=== PATIENT | female | born 1935 | race Hispanic/Latino ===

== ENCOUNTER 2020-12-21 17:00 | Inpatient (IN) | payer MEDICARE ==
[2020-12-21] MEDS ORDERED: Acetaminophen 325 MG TAB PO PRN ×2 (20:30→21:10)
[2020-12-21] MEDS ORDERED: Ondansetron PF 4 MG/2 ML Vial IVP PRN ×2 (20:30→21:10)
[2020-12-21] MEDS ORDERED: Ondansetron ODT 4 MG TAB SL PRN (20:30)
[2020-12-21] MEDS ORDERED: Ondansetron ODT 4 MG TAB PO PRN (21:10)
[2020-12-21] MEDS ORDERED: Guaifenesin DM 100-10/5 ML UDCUP PO PRN (21:10)
[2020-12-21] MEDS ORDERED: Calcium Carbonate 500 MG ChewTAB PO PRN (21:10)
[2020-12-21 23:39] VITALS: BMI 26.6
[2020-12-21 23:50] LABS: Prothrombin Time 13.8 sec (12.0-14.7)
[2020-12-21 23:51] LABS: PTT 55.2 sec (22.9-36.1)
[2020-12-21 23:52] LABS: Troponin I 0.045 ng/mL (< 0.028)
[2020-12-22] MEDS ORDERED: Enoxaparin Sodium 60 MG/0.6 ML SYRINGE SC SCH (06:00)
[2020-12-22] MEDS: Enoxaparin Sodium 60 MG/0.6 ML SYRINGE SC SCH (06:04)
[2020-12-22 06:23] LABS: #Lymphocytes 0.6 thou/uL (1.20-3.40); #Monocytes 0.2 thou/uL (0.11-0.59); #Neutrophils 4.1 thou/uL (1.40-6.50); %Basophils 0.6 % (0.0-1.0); %Eosinophils 0.1 % (0.0-10.0); %Lymphocytes 11.8 % (21.0-51.0); %Monocytes 3.2 % (0.0-10.0); %Neutrophils 84.2 % (42.0-75.0); Hemoglobin 11.7 g/dL (12.0-16.0); Mean Corpuscular Volume 94.1 fL (78.0-98.0); Mean Platelet Volume 9.1 fL (7.4-10.4); Platelet Count 160 thou/uL (130-400); RBC Distribution Width 12.2 % (11.5-14.5); Red Blood Cell (RBC) Count 3.67 mill/uL (4.20-5.40); White Blood Cell (WBC) Count 4.9 thou/uL (4.8-10.8)
[2020-12-22 06:47] LABS: Anion Gap 19 mmol/L (10-20); BUN (Urea Nitrogen) 38 mg/dL (9.8-20.1); Calc. Creatinine Clearance 37 mL/min (70-130); Calcium 8.5 mg/dL (7.8-10.44); Carbon Dioxide 15 mmol/L (23-31); Chloride 105 mmol/L (98-107); Glucose 152 mg/dL (83-110); Potassium 3.4 mmol/L (3.5-5.1); Sodium 136 mmol/L (136-145)
[2020-12-22 06:48] LABS: CRP (Inflammatory) 7.26 mg/dL (= or < 0.5); Magnesium 1.7 mg/dL (1.6-2.6)
[2020-12-22 07:01] LABS: Ferritin 879.72 ng/mL (10-291)
[2020-12-22 07:10] LABS: Thyroid Stimulating Hormone 1.097 uIU/mL (0.35-4.94)
[2020-12-22] MEDS: Cholecalciferol 1,000 UNITS (25 MCG) TAB PO SCH (07:50)
[2020-12-22] MEDS: Dexamethasone 4 mg/ml Vial SLOW IVP SCH (07:50)
[2020-12-22] MEDS: Zinc Sulfate 220 MG CAP PO SCH (07:50)
[2020-12-22] MEDS ORDERED: Ascorbic Acid 500 mg Chewable Tablet PO SCH (09:00)
[2020-12-22] MEDS: Amlodipine 5 MG TAB PO SCH (20:30)
[2020-12-22] MEDS: Ascorbic Acid 500 mg Chewable Tablet PO SCH (20:30)
[2020-12-22] MEDS: Metoprolol Tartrate 25 MG TAB PO SCH (20:32)
[2020-12-23] MEDS: Enoxaparin Sodium 60 MG/0.6 ML SYRINGE SC SCH (05:10)
[2020-12-23] MEDS: Levothyroxine Sodium 25 MCG TAB PO SCH (05:11)
[2020-12-23 06:38] LABS: Troponin I 0.023 ng/mL (< 0.028)
[2020-12-23] MEDS: Losartan 25 MG TAB PO SCH (08:01)
[2020-12-23] MEDS: Dexamethasone 4 mg/ml Vial SLOW IVP SCH (08:01)
[2020-12-23] MEDS: Cholecalciferol 1,000 UNITS (25 MCG) TAB PO SCH (08:01)
[2020-12-23] MEDS: Ascorbic Acid 500 mg Chewable Tablet PO SCH ×2 (08:02→20:52)
[2020-12-23] MEDS: Amlodipine 5 MG TAB PO SCH ×2 (08:02→20:52)
[2020-12-23] MEDS: Metoprolol Tartrate 25 MG TAB PO SCH ×2 (08:02→20:52)
[2020-12-23] MEDS: Escitalopram Oxalate 10 mg Tablet PO SCH (08:03)
[2020-12-23] MEDS: Zinc Sulfate 220 MG CAP PO SCH (08:03)
[2020-12-23] MEDS: Loratadine 10 MG TAB PO SCH (08:03)
[2020-12-24] MEDS: Levothyroxine Sodium 25 MCG TAB PO SCH (05:10)
[2020-12-24] MEDS: Enoxaparin Sodium 60 MG/0.6 ML SYRINGE SC SCH (05:10)
[2020-12-24 06:10] LABS: Bacteria/HPF None Seen HPF (None Seen); Bilirubin Negative (Negative); Blood, Urine Negative (Negative); Clarity Clear (Clear); Glucose, Urine (Dipstick) Normal (Negative); Ketone, Urine 10 mg/dL (Negative); Leukocyte Negative Leu/uL (Negative); Nitrite Negative (Negative); Protein, Urine (Dipstick) 10 mg/dL (Neg-Trace); RBC/HPF 0-3 HPF (0-3); Specific Gravity, Urine 1.018 (1.002-1.036); Squamous Epithelial 0-3 HPF (0-3); Urobilinogen Normal mg/dL (Less than 2); WBC/HPF 0-3 HPF (0-3); pH, Urine 5.5 (5.0-9.0)
[2020-12-24 06:33] LABS: #Lymphocytes 0.9 thou/uL (1.20-3.40); #Monocytes 0.8 thou/uL (0.11-0.59); #Neutrophils 10.1 thou/uL (1.40-6.50); %Basophils 0.1 % (0.0-1.0); %Eosinophils 0.1 % (0.0-10.0); %Lymphocytes 7.2 % (21.0-51.0); %Monocytes 7.1 % (0.0-10.0); %Neutrophils 85.5 % (42.0-75.0); Hemoglobin 11.3 g/dL (12.0-16.0); Mean Corpuscular Hemoglobin 31.8 pg (27.0-31.0); Mean Corpuscular Volume 93.5 fL (78.0-98.0); Platelet Count 213 thou/uL (130-400); RBC Distribution Width 12.3 % (11.5-14.5); Red Blood Cell (RBC) Count 3.54 mill/uL (4.20-5.40); White Blood Cell (WBC) Count 11.8 thou/uL (4.8-10.8)
[2020-12-24 06:55] LABS: Anion Gap 18 mmol/L (10-20); BUN (Urea Nitrogen) 37 mg/dL (9.8-20.1); Calc. Creatinine Clearance 51 mL/min (70-130); Calcium 8.5 mg/dL (7.8-10.44); Carbon Dioxide 20 mmol/L (23-31); Chloride 105 mmol/L (98-107); Glucose 146 mg/dL (83-110); Sodium 140 mmol/L (136-145)
[2020-12-24 06:57] LABS: Potassium 2.7 mmol/L (3.5-5.1)
[2020-12-24] MEDS: Dexamethasone 4 mg/ml Vial SLOW IVP SCH (08:28)
[2020-12-24] MEDS: Escitalopram Oxalate 10 mg Tablet PO SCH (08:28)
[2020-12-24] MEDS: Metoprolol Tartrate 25 MG TAB PO SCH ×2 (08:28→21:59)
[2020-12-24] MEDS: Zinc Sulfate 220 MG CAP PO SCH (08:28)
[2020-12-24] MEDS: Cholecalciferol 1,000 UNITS (25 MCG) TAB PO SCH (08:28)
[2020-12-24] MEDS: Losartan 25 MG TAB PO SCH (08:29)
[2020-12-24] MEDS: Amlodipine 5 MG TAB PO SCH ×2 (08:29→21:59)
[2020-12-24] MEDS: Ascorbic Acid 500 mg Chewable Tablet PO SCH ×2 (08:29→21:59)
[2020-12-24] MEDS: Loratadine 10 MG TAB PO SCH (08:29)
[2020-12-24] MEDS ORDERED: Potassium Chloride 20 MEQ TAB PO SCH (08:45)
[2020-12-24] MEDS: Potassium Chloride 20 MEQ TAB PO SCH (21:59)
[2020-12-25] MEDS: Enoxaparin Sodium 60 MG/0.6 ML SYRINGE SC SCH (05:36)
[2020-12-25] MEDS: Levothyroxine Sodium 25 MCG TAB PO SCH (05:36)
[2020-12-25 06:56] LABS: Anion Gap 17 mmol/L (10-20); BUN (Urea Nitrogen) 36 mg/dL (9.8-20.1); Calc. Creatinine Clearance 52 mL/min (70-130); Calcium 8.7 mg/dL (7.8-10.44); Carbon Dioxide 20 mmol/L (23-31); Chloride 106 mmol/L (98-107); Glucose 153 mg/dL (83-110); Magnesium 1.6 mg/dL (1.6-2.6); Potassium 3.5 mmol/L (3.5-5.1); Sodium 139 mmol/L (136-145)
[2020-12-25] MEDS: Ascorbic Acid 500 mg Chewable Tablet PO SCH ×2 (08:16→21:03)
[2020-12-25] MEDS: Cholecalciferol 1,000 UNITS (25 MCG) TAB PO SCH (08:16)
[2020-12-25] MEDS: Loratadine 10 MG TAB PO SCH (08:16)
[2020-12-25] MEDS: Potassium Chloride 20 MEQ TAB PO SCH (08:16)
[2020-12-25] MEDS: Escitalopram Oxalate 10 mg Tablet PO SCH (08:16)
[2020-12-25] MEDS: Zinc Sulfate 220 MG CAP PO SCH (08:17)
[2020-12-25] MEDS: Amlodipine 5 MG TAB PO SCH ×2 (08:17→21:02)
[2020-12-25] MEDS: Dexamethasone 4 mg/ml Vial SLOW IVP SCH (08:17)
[2020-12-25] MEDS: Losartan 25 MG TAB PO SCH (08:17)
[2020-12-25] MEDS: Metoprolol Tartrate 25 MG TAB PO SCH ×2 (08:17→21:03)
[2020-12-26] MEDS: Enoxaparin Sodium 60 MG/0.6 ML SYRINGE SC SCH (05:47)
[2020-12-26] MEDS: Levothyroxine Sodium 25 MCG TAB PO SCH (05:47)
[2020-12-26] MEDS: Cholecalciferol 1,000 UNITS (25 MCG) TAB PO SCH (10:27)
[2020-12-26] MEDS: Potassium Chloride 20 MEQ TAB PO SCH (10:28)
[2020-12-26] MEDS: Dexamethasone 4 MG TAB PO SCH (10:28)
[2020-12-26] MEDS: Zinc Sulfate 220 MG CAP PO SCH (10:28)
[2020-12-26] MEDS: Losartan 25 MG TAB PO SCH (10:28)
[2020-12-26] MEDS: Loratadine 10 MG TAB PO SCH (10:29)
[2020-12-26] MEDS: Escitalopram Oxalate 10 mg Tablet PO SCH (10:29)
[2020-12-26] MEDS: Metoprolol Tartrate 25 MG TAB PO SCH ×2 (10:29→20:52)
[2020-12-26] MEDS: Amlodipine 5 MG TAB PO SCH ×2 (10:29→20:52)
[2020-12-26] MEDS: Enoxaparin Sodium 40 MG/0.4 ML SYRINGE SC SCH (10:33)
[2020-12-26] MEDS: Ascorbic Acid 500 mg Chewable Tablet PO SCH ×2 (10:33→20:51)
[2020-12-27] MEDS: Levothyroxine Sodium 25 MCG TAB PO SCH (05:13)
[2020-12-27 06:10] LABS: CRP (Inflammatory) 0.95 mg/dL (= or < 0.5); Magnesium 1.5 mg/dL (1.6-2.6)
[2020-12-27 06:12] LABS: ALT (SGPT) 21 U/L (8-55); AST (SGOT) 22 U/L (5-34); Albumin 2.9 g/dL (3.4-4.8); Alkaline Phosphatase 54 U/L (40-110); Anion Gap 10 mmol/L (10-20); BUN (Urea Nitrogen) 22 mg/dL (9.8-20.1); Bilirubin, Total 0.4 mg/dL (0.2-1.2); Calc. Creatinine Clearance 63 mL/min (70-130); Calcium 8.3 mg/dL (7.8-10.44); Carbon Dioxide 25 mmol/L (23-31); Chloride 107 mmol/L (98-107); Globulin 2.8 g/dL (2.4-3.5); Glucose 122 mg/dL (83-110); Phosphorus 2.3 mg/dL (2.3-4.7); Potassium 3.8 mmol/L (3.5-5.1); Protein, Total 5.7 g/dL (5.8-8.1); Sodium 138 mmol/L (136-145)
[2020-12-27 06:42] LABS: #Lymphocytes 1.2 thou/uL (1.20-3.40); #Monocytes 0.9 thou/uL (0.11-0.59); #Neutrophils 5.9 thou/uL (1.40-6.50); %Basophils 0.6 % (0.0-1.0); %Eosinophils 0.2 % (0.0-10.0); %Lymphocytes 14.6 % (21.0-51.0); %Monocytes 10.8 % (0.0-10.0); %Neutrophils 73.8 % (42.0-75.0); Hemoglobin 11.3 g/dL (12.0-16.0); Mean Corpuscular HGB CONC 33.8 g/dL (32.0-36.0); Mean Corpuscular Hemoglobin 31.8 pg (27.0-31.0); Mean Corpuscular Volume 94.1 fL (78.0-98.0); Mean Platelet Volume 8.9 fL (7.4-10.4); Platelet Count 301 thou/uL (130-400); RBC Distribution Width 12.1 % (11.5-14.5); Red Blood Cell (RBC) Count 3.56 mill/uL (4.20-5.40)
[2020-12-27] MEDS: Potassium Chloride 20 MEQ TAB PO SCH (08:32)
[2020-12-27] MEDS: Dexamethasone 4 MG TAB PO SCH (08:33)
[2020-12-27] MEDS: Ascorbic Acid 500 mg Chewable Tablet PO SCH ×2 (08:33→20:31)
[2020-12-27] MEDS: Loratadine 10 MG TAB PO SCH (08:33)
[2020-12-27] MEDS: Cholecalciferol 1,000 UNITS (25 MCG) TAB PO SCH (08:34)
[2020-12-27] MEDS: Losartan 25 MG TAB PO SCH (08:34)
[2020-12-27] MEDS: Escitalopram Oxalate 10 mg Tablet PO SCH (08:34)
[2020-12-27] MEDS: Amlodipine 5 MG TAB PO SCH ×2 (08:35→20:32)
[2020-12-27] MEDS: Metoprolol Tartrate 25 MG TAB PO SCH ×2 (08:35→20:32)
[2020-12-27] MEDS: Enoxaparin Sodium 40 MG/0.4 ML SYRINGE SC SCH (08:35)
[2020-12-27] MEDS: Zinc Sulfate 220 MG CAP PO SCH (08:36)
[2020-12-27] MEDS ORDERED: Electrolyte Replacement Protocol 1 EACH FS SCH (09:00)
[2020-12-27] MEDS ORDERED: Magnesium Sulfate 4 GM in Sodium Chloride 0.9% 250 ML 250 ML IVPB SCH (09:00)
[2020-12-27] MEDS: Folic Acid 1 MG TAB PO SCH (09:49)
[2020-12-27] MEDS: Multivit, Therapeutic 1 TAB PO SCH (09:49)
[2020-12-27] MEDS: Cyanocobalamin (Vitamin B-12) 1,000 MCG TAB PO SCH (09:49)
[2020-12-28] MEDS: Levothyroxine Sodium 25 MCG TAB PO SCH (06:02)
[2020-12-28 07:13] LABS: ALT (SGPT) 26 U/L (8-55); AST (SGOT) 20 U/L (5-34); Albumin 2.9 g/dL (3.4-4.8); Alkaline Phosphatase 56 U/L (40-110); Anion Gap 14 mmol/L (10-20); BUN (Urea Nitrogen) 21 mg/dL (9.8-20.1); Bilirubin, Total 0.4 mg/dL (0.2-1.2); Calc. Creatinine Clearance 62 mL/min (70-130); Calcium 8.4 mg/dL (7.8-10.44); Carbon Dioxide 21 mmol/L (23-31); Chloride 105 mmol/L (98-107); Glucose 124 mg/dL (83-110); Magnesium 2.1 mg/dL (1.6-2.6); Phosphorus 2.5 mg/dL (2.3-4.7); Potassium 3.7 mmol/L (3.5-5.1); Protein, Total 5.9 g/dL (5.8-8.1); Sodium 136 mmol/L (136-145)
[2020-12-28 07:29] LABS: Hemoglobin 11.9 g/dL (12.0-16.0); Mean Corpuscular HGB CONC 33.1 g/dL (32.0-36.0); Mean Corpuscular Hemoglobin 31.1 pg (27.0-31.0); Mean Corpuscular Volume 93.9 fL (78.0-98.0); Mean Platelet Volume 8.7 fL (7.4-10.4); Platelet Count 372 thou/uL (130-400); Red Blood Cell (RBC) Count 3.82 mill/uL (4.20-5.40); White Blood Cell (WBC) Count 10.4 thou/uL (4.8-10.8)
[2020-12-28] MEDS: Dexamethasone 4 MG TAB PO SCH (08:32)
[2020-12-28] MEDS: Ascorbic Acid 500 mg Chewable Tablet PO SCH (08:33)
[2020-12-28] MEDS: Zinc Sulfate 220 MG CAP PO SCH (08:33)
[2020-12-28] MEDS: Potassium Chloride 20 MEQ TAB PO SCH (08:33)
[2020-12-28] MEDS: Loratadine 10 MG TAB PO SCH (08:33)
[2020-12-28] MEDS: Cyanocobalamin (Vitamin B-12) 1,000 MCG TAB PO SCH (08:33)
[2020-12-28] MEDS: Metoprolol Tartrate 25 MG TAB PO SCH (08:33)
[2020-12-28] MEDS: Multivit, Therapeutic 1 TAB PO SCH (08:34)
[2020-12-28] MEDS: Folic Acid 1 MG TAB PO SCH (08:34)
[2020-12-28] MEDS: Amlodipine 5 MG TAB PO SCH (08:34)
[2020-12-28] MEDS: Losartan 25 MG TAB PO SCH (08:34)
[2020-12-28] MEDS: Escitalopram Oxalate 10 mg Tablet PO SCH (08:34)
[2020-12-28] MEDS: Enoxaparin Sodium 40 MG/0.4 ML SYRINGE SC SCH (08:34)
[2020-12-28 08:59] LABS: Band 2 % (5-11); Eosinophils 1 % (0-10); Lymphocytes 18 % (21-51); MDiff Complete? YES; Monocytes 6 % (0-10); Myelocyte 1 % (0-0); Neutrophil 71 % (42-75); Platelet Morphology Comment Appears Adequate; Polychromasia SLIGHT = 2-3 cells (100X) (0-2/hpf); Reactive Lymphocytes 1 % (0-10)
[2020-12-28] MEDS ORDERED: Cholecalciferol 1,000 UNITS (25 MCG) TAB PO SCH (09:00)
[2020-12-28 11:02] VITALS: BP 147/68; TEMP 97.4
== END 2020-12-28 13:26 | disposition home health service (06) | DRG 177 ==
LOC: T4-B 17:00
PROVIDERS: ADMIT Internal Medicine; ATTEND Internal Medicine
PROC: 8E0ZXY6 Isolation (ICD-10-PCS; principal; 2020-12-21)
DX: U07.1 COVID-19 (principal); J12.82 Pneumonia due to coronavirus disease 2019; J96.01 Acute respiratory failure with hypoxia; N17.9 Acute kidney failure, unspecified; E78.5 Hyperlipidemia, unspecified; F03.90 Unspecified dementia, unspecified severity, without behavioral disturbance, psychotic disturbance, mood disturbance, and anxiety; R10.30 Lower abdominal pain, unspecified; R00.0 Tachycardia, unspecified; N18.9 Chronic kidney disease, unspecified; E87.6 Hypokalemia; E03.9 Hypothyroidism, unspecified; I12.9 Hypertensive chronic kidney disease with stage 1 through stage 4 chronic kidney disease, or unspecified chronic kidney disease; D53.9 Nutritional anemia, unspecified
CPT/HCPCS: 36415; 80048; 80053; 81001; 82728; 83735; 84100; 84443; 84484; 85025; 85610; 85730; 86140; J1100; J1650; J3475; J7050; J8540

== ENCOUNTER 2021-01-03 18:56 | Inpatient (IN) | payer MEDICARE ==
[~2021-01-03 18:56] MED LIST: Iopamidol-370 76% 500 ML 1 ML ONE
[2021-01-03 19:45] LABS: #Eosinphils 0.1 thou/uL (0.0-0.7); #Lymphocytes 0.8 thou/uL (1.20-3.40); #Monocytes 0.6 thou/uL (0.11-0.59); #Neutrophils 11.9 thou/uL (1.40-6.50); %Basophils 0.1 % (0.0-1.0); %Eosinophils 0.6 % (0.0-10.0); %Lymphocytes 6.2 % (21.0-51.0); %Monocytes 4.4 % (0.0-10.0); %Neutrophils 88.8 % (42.0-75.0); Hemoglobin 12.5 g/dL (12.0-16.0); Mean Corpuscular HGB CONC 33.2 g/dL (32.0-36.0); Mean Corpuscular Hemoglobin 31.9 pg (27.0-31.0); Platelet Count 223 thou/uL (130-400); Red Blood Cell (RBC) Count 3.91 mill/uL (4.20-5.40); White Blood Cell (WBC) Count 13.4 thou/uL (4.8-10.8)
[2021-01-03 20:07] LABS: ALT (SGPT) 18 U/L (8-55); AST (SGOT) 13 U/L (5-34); Albumin 2.8 g/dL (3.4-4.8); Alkaline Phosphatase 62 U/L (40-110); Anion Gap 12 mmol/L (10-20); BUN (Urea Nitrogen) 23 mg/dL (9.8-20.1); Bilirubin, Total 0.5 mg/dL (0.2-1.2); Calc. Creatinine Clearance 0 mL/min (70-130); Carbon Dioxide 21 mmol/L (23-31); Chloride 104 mmol/L (98-107); Globulin 2.7 g/dL (2.4-3.5); Glucose 111 mg/dL (83-110); Lipase 47 U/L (8-78); Magnesium 1.5 mg/dL (1.6-2.6); Potassium 3.4 mmol/L (3.5-5.1); Protein, Total 5.5 g/dL (5.8-8.1); Sodium 134 mmol/L (136-145)
[2021-01-03] MEDS ORDERED: Potassium Chloride 20 MEQ TAB PO SCH (21:00)
[2021-01-03] MEDS ORDERED: Ondansetron PF 4 MG/2 ML Vial IVP PRN (21:08)
[2021-01-03] MEDS ORDERED: Ondansetron ODT 4 MG TAB PO PRN (21:08)
[2021-01-03] MEDS ORDERED: Acetaminophen 325 MG TAB PO PRN (21:08)
[2021-01-03] MEDS ORDERED: HYDROcodone/Acetaminophen 5/325 mg Tablet PO PRN (21:08)
[2021-01-03] MEDS ORDERED: Magnesium 2 GM/50 ML 2 GM in Premix Bag 1 BAG IVPB SCH (21:15)
[2021-01-03] MEDS ORDERED: Enoxaparin Sodium 80 MG/0.8 ML SYRINGE ONE (21:21)
[2021-01-03 21:31] LABS: Bacteria/HPF 4+ HPF (None Seen); Bilirubin Negative (Negative); Blood, Urine Negative (Negative); Clarity Clear (Clear); Glucose, Urine (Dipstick) Normal (Negative); Ketone, Urine Negative (Negative); Leukocyte Negative Leu/uL (Negative); Nitrite 1+ (Negative); Protein, Urine (Dipstick) Negative (Neg-Trace); RBC/HPF 0-3 HPF (0-3); Renal Epithelial 0-3 HPF (None Seen); Specific Gravity, Urine 1.032 (1.002-1.036); Squamous Epithelial 0-3 HPF (0-3); Urobilinogen Normal mg/dL (Less than 2); WBC/HPF 0-3 HPF (0-3); Yeast-Budding Rare HPF (None Seen); pH, Urine 6.5 (5.0-9.0)
[2021-01-03] MEDS ORDERED: Dexamethasone 4 mg/ml Vial SLOW IVP SCH (23:00)
[2021-01-03 23:35] LABS: Troponin I 0.025 ng/mL (< 0.028)
[2021-01-04 01:03] VITALS: BMI 24.5
[2021-01-04] MEDS ORDERED: Albuterol 200 PUFF (6.7GM INHALER) INH PRN (02:12)
[2021-01-04] MEDS: Albuterol 200 PUFF (6.7GM INHALER) INH SCH ×5 (02:35→18:48)
[2021-01-04 03:04] LABS: Troponin I 0.025 ng/mL (< 0.028)
[2021-01-04 06:18] LABS: #Lymphocytes 0.5 thou/uL (1.20-3.40); #Monocytes 0.1 thou/uL (0.11-0.59); #Neutrophils 15.8 thou/uL (1.40-6.50); %Basophils 0.1 % (0.0-1.0); %Eosinophils 0.2 % (0.0-10.0); %Lymphocytes 3.1 % (21.0-51.0); %Monocytes 0.7 % (0.0-10.0); %Neutrophils 95.9 % (42.0-75.0); Hemoglobin 12.1 g/dL (12.0-16.0); Mean Corpuscular HGB CONC 34.1 g/dL (32.0-36.0); Mean Corpuscular Hemoglobin 32.8 pg (27.0-31.0); Mean Corpuscular Volume 96.4 fL (78.0-98.0); Mean Platelet Volume 8.5 fL (7.4-10.4); Platelet Count 227 thou/uL (130-400); RBC Distribution Width 12.9 % (11.5-14.5); Red Blood Cell (RBC) Count 3.68 mill/uL (4.20-5.40); White Blood Cell (WBC) Count 16.5 thou/uL (4.8-10.8)
[2021-01-04 06:46] LABS: Anion Gap 12 mmol/L (10-20); BUN (Urea Nitrogen) 24 mg/dL (9.8-20.1); Calc. Creatinine Clearance 49 mL/min (70-130); Calcium 8.6 mg/dL (7.8-10.44); Carbon Dioxide 22 mmol/L (23-31); Chloride 105 mmol/L (98-107); Glucose 143 mg/dL (83-110); Potassium 5.6 mmol/L (3.5-5.1); Sodium 133 mmol/L (136-145)
[2021-01-04] MEDS: Enoxaparin Sodium 60 MG/0.6 ML SYRINGE SC SCH ×2 (08:09→20:42)
[2021-01-04] MEDS: Ascorbic Acid 500 mg Chewable Tablet PO SCH (08:10)
[2021-01-04] MEDS: Dexamethasone 4 mg/ml Vial SLOW IVP SCH (08:10)
[2021-01-04] MEDS: Cholecalciferol (Vitamin D3) 400 UNITS TAB PO SCH (08:11)
[2021-01-04] MEDS: Zinc Sulfate 220 MG CAP PO SCH (08:11)
[2021-01-04] MEDS ORDERED: Non-Formulary Item 1 EACH (Albuterol Sulfate Hfa (Or) 200 PUFF Inh) INH SCH (12:00)
[2021-01-04] MEDS ORDERED: Albuterol 200 PUFF (6.7GM INHALER) INH SCH (14:30)
[2021-01-04 16:35] LABS: Potassium 3.9 mmol/L (3.5-5.1)
[2021-01-04] MEDS: Amlodipine 5 MG TAB PO SCH (20:42)
[2021-01-04] MEDS: Metoprolol Tartrate 25 MG TAB PO SCH (20:42)
[2021-01-05] MEDS: Albuterol 200 PUFF (6.7GM INHALER) INH SCH ×7 (00:02→22:08)
[2021-01-05] MEDS: Levothyroxine Sodium 25 MCG TAB PO SCH (05:34)
[2021-01-05 06:17] LABS: Hemoglobin 10.7 g/dL (12.0-16.0); Mean Corpuscular Hemoglobin 30.7 pg (27.0-31.0); Mean Platelet Volume 8.2 fL (7.4-10.4); Platelet Count 228 thou/uL (130-400); Red Blood Cell (RBC) Count 3.49 mill/uL (4.20-5.40); White Blood Cell (WBC) Count 11.1 thou/uL (4.8-10.8)
[2021-01-05 06:32] LABS: Hypochromia SLIGHT = 6-15 cells (100X) (0-5/hpf); Lymphocytes 5 % (21-51); MDiff Complete? YES; Monocytes 4 % (0-10); Neutrophil 91 % (42-75); Platelet Morphology Comment Appears Adequate
[2021-01-05 06:35] LABS: Anion Gap 13 mmol/L (10-20); BUN (Urea Nitrogen) 28 mg/dL (9.8-20.1); Calc. Creatinine Clearance 53 mL/min (70-130); Calcium 8.8 mg/dL (7.8-10.44); Carbon Dioxide 24 mmol/L (23-31); Chloride 106 mmol/L (98-107); Glucose 150 mg/dL (83-110); Sodium 140 mmol/L (136-145)
[2021-01-05 06:39] LABS: Potassium 2.9 mmol/L (3.5-5.1)
[2021-01-05] MEDS ORDERED: Potassium Chloride 20 MEQ TAB PO SCH (07:00)
[2021-01-05] MEDS: Loratadine 10 MG TAB PO SCH (07:28)
[2021-01-05] MEDS: Cholecalciferol (Vitamin D3) 400 UNITS TAB PO SCH (07:28)
[2021-01-05] MEDS: Aspirin 81 mg Enteric Coated Tablet PO SCH (07:28)
[2021-01-05] MEDS: Enoxaparin Sodium 60 MG/0.6 ML SYRINGE SC SCH (07:28)
[2021-01-05] MEDS: Ascorbic Acid 500 mg Chewable Tablet PO SCH ×2 (07:29→07:31)
[2021-01-05] MEDS: Metoprolol Tartrate 25 MG TAB PO SCH ×2 (07:29→20:16)
[2021-01-05] MEDS: Zinc Sulfate 220 MG CAP PO SCH ×2 (07:29→07:31)
[2021-01-05] MEDS: Multivit, Therapeutic 1 TAB PO SCH (07:29)
[2021-01-05] MEDS: Dexamethasone 4 mg/ml Vial SLOW IVP SCH (07:29)
[2021-01-05] MEDS: Escitalopram Oxalate 10 mg Tablet PO SCH (07:30)
[2021-01-05] MEDS: Folic Acid 1 MG TAB PO SCH (07:30)
[2021-01-05] MEDS: Amlodipine 5 MG TAB PO SCH ×2 (07:50→20:16)
[2021-01-05] MEDS: Losartan 25 MG TAB PO SCH (07:50)
[2021-01-05] MEDS: NS 0.9% w/ 40 MEQ KCL 1,000 ML IV SCH ×2 (10:08→20:21)
[2021-01-05] MEDS: Colchicine 0.6 MG TAB PO SCH (20:16)
[2021-01-05] MEDS: Apixaban 5 MG TAB PO SCH (20:16)
[2021-01-06] MEDS: Albuterol 200 PUFF (6.7GM INHALER) INH SCH ×6 (03:10→22:13)
[2021-01-06] MEDS: Levothyroxine Sodium 25 MCG TAB PO SCH (05:47)
[2021-01-06 06:35] LABS: #Lymphocytes 0.8 thou/uL (1.20-3.40); #Monocytes 0.5 thou/uL (0.11-0.59); #Neutrophils 10.2 thou/uL (1.40-6.50); %Basophils 0.4 % (0.0-1.0); %Lymphocytes 7.3 % (21.0-51.0); %Monocytes 4.4 % (0.0-10.0); %Neutrophils 87.9 % (42.0-75.0); Hemoglobin 10.8 g/dL (12.0-16.0); Mean Corpuscular HGB CONC 33.3 g/dL (32.0-36.0); Mean Corpuscular Hemoglobin 32.2 pg (27.0-31.0); Mean Corpuscular Volume 96.7 fL (78.0-98.0); Mean Platelet Volume 8.1 fL (7.4-10.4); Platelet Count 230 thou/uL (130-400); RBC Distribution Width 13.1 % (11.5-14.5); Red Blood Cell (RBC) Count 3.37 mill/uL (4.20-5.40); White Blood Cell (WBC) Count 11.6 thou/uL (4.8-10.8)
[2021-01-06 06:55] LABS: Anion Gap 12 mmol/L (10-20); BUN (Urea Nitrogen) 29 mg/dL (9.8-20.1); Calc. Creatinine Clearance 58 mL/min (70-130); Calcium 8.6 mg/dL (7.8-10.44); Carbon Dioxide 19 mmol/L (23-31); Chloride 110 mmol/L (98-107); Glucose 122 mg/dL (83-110); Magnesium 1.6 mg/dL (1.6-2.6); Potassium 3.5 mmol/L (3.5-5.1); Sodium 137 mmol/L (136-145)
[2021-01-06] MEDS: Dexamethasone 4 MG TAB PO SCH (07:21)
[2021-01-06] MEDS: Amlodipine 5 MG TAB PO SCH ×2 (07:23→22:12)
[2021-01-06] MEDS: Ascorbic Acid 500 mg Chewable Tablet PO SCH ×2 (07:24→07:25)
[2021-01-06] MEDS: Apixaban 5 MG TAB PO SCH ×2 (07:24→22:12)
[2021-01-06] MEDS: Aspirin 81 mg Enteric Coated Tablet PO SCH (07:25)
[2021-01-06] MEDS: Cholecalciferol 1,000 UNITS (25 MCG) TAB PO SCH (07:25)
[2021-01-06] MEDS: Colchicine 0.6 MG TAB PO SCH ×2 (07:26→22:12)
[2021-01-06] MEDS: Losartan 25 MG TAB PO SCH (07:27)
[2021-01-06] MEDS: Folic Acid 1 MG TAB PO SCH (07:27)
[2021-01-06] MEDS: Loratadine 10 MG TAB PO SCH (07:27)
[2021-01-06] MEDS: Escitalopram Oxalate 10 mg Tablet PO SCH (07:27)
[2021-01-06] MEDS: Metoprolol Tartrate 25 MG TAB PO SCH ×2 (07:28→22:12)
[2021-01-06] MEDS: Multivit, Therapeutic 1 TAB PO SCH (07:28)
[2021-01-06] MEDS: Zinc Sulfate 220 MG CAP PO SCH ×2 (07:28→07:29)
[2021-01-06] MEDS ORDERED: hydrALAZINE 20 MG/ML VIAL SLOW IVP PRN (11:56)
[2021-01-06] MEDS ORDERED: Losartan 25 MG TAB PO SCH (12:15)
[2021-01-06] MEDS: NS 0.9% w/ 40 MEQ KCL 1,000 ML IV SCH (23:03)
[2021-01-07] MEDS: Albuterol 200 PUFF (6.7GM INHALER) INH SCH ×6 (02:32→20:59)
[2021-01-07] MEDS: Levothyroxine Sodium 25 MCG TAB PO SCH (05:46)
[2021-01-07 07:45] LABS: #Lymphocytes 0.9 thou/uL (1.20-3.40); #Monocytes 0.5 thou/uL (0.11-0.59); %Basophils 0.3 % (0.0-1.0); %Eosinophils 0.2 % (0.0-10.0); %Lymphocytes 9.7 % (21.0-51.0); %Monocytes 5.6 % (0.0-10.0); %Neutrophils 84.3 % (42.0-75.0); Hemoglobin 10.5 g/dL (12.0-16.0); Mean Corpuscular HGB CONC 33.9 g/dL (32.0-36.0); Mean Corpuscular Hemoglobin 32.4 pg (27.0-31.0); Mean Corpuscular Volume 95.6 fL (78.0-98.0); Mean Platelet Volume 8.1 fL (7.4-10.4); Platelet Count 223 thou/uL (130-400); RBC Distribution Width 12.7 % (11.5-14.5); Red Blood Cell (RBC) Count 3.23 mill/uL (4.20-5.40); White Blood Cell (WBC) Count 9.4 thou/uL (4.8-10.8)
[2021-01-07 08:06] LABS: Anion Gap 10 mmol/L (10-20); BUN (Urea Nitrogen) 21 mg/dL (9.8-20.1); Calc. Creatinine Clearance 62 mL/min (70-130); Calcium 8.6 mg/dL (7.8-10.44); Carbon Dioxide 24 mmol/L (23-31); Chloride 106 mmol/L (98-107); Glucose 107 mg/dL (83-110); Potassium 3.4 mmol/L (3.5-5.1); Sodium 137 mmol/L (136-145)
[2021-01-07] MEDS: Ascorbic Acid 500 mg Chewable Tablet PO SCH (09:12)
[2021-01-07] MEDS: Losartan 25 MG TAB PO SCH (09:12)
[2021-01-07] MEDS: Multivit, Therapeutic 1 TAB PO SCH (09:12)
[2021-01-07] MEDS: Amlodipine 5 MG TAB PO SCH ×2 (09:13→20:57)
[2021-01-07] MEDS: Colchicine 0.6 MG TAB PO SCH ×2 (09:13→20:58)
[2021-01-07] MEDS: Zinc Sulfate 220 MG CAP PO SCH (09:13)
[2021-01-07] MEDS: Cholecalciferol 1,000 UNITS (25 MCG) TAB PO SCH (09:13)
[2021-01-07] MEDS: Escitalopram Oxalate 10 mg Tablet PO SCH (09:13)
[2021-01-07] MEDS: Aspirin 81 mg Enteric Coated Tablet PO SCH (09:13)
[2021-01-07] MEDS: Dexamethasone 4 MG TAB PO SCH (09:13)
[2021-01-07] MEDS: Loratadine 10 MG TAB PO SCH (09:13)
[2021-01-07] MEDS: Folic Acid 1 MG TAB PO SCH (09:14)
[2021-01-07] MEDS: Metoprolol Tartrate 25 MG TAB PO SCH ×2 (09:14→20:59)
[2021-01-07] MEDS: Apixaban 5 MG TAB PO SCH ×2 (09:14→20:58)
[2021-01-08] MEDS: Albuterol 200 PUFF (6.7GM INHALER) INH SCH ×2 (02:22→05:56)
[2021-01-08 05:09] LABS: #Lymphocytes 0.5 thou/uL (1.20-3.40); #Monocytes 0.3 thou/uL (0.11-0.59); #Neutrophils 7.4 thou/uL (1.40-6.50); %Eosinophils 0.1 % (0.0-10.0); %Lymphocytes 6.3 % (21.0-51.0); %Monocytes 4.1 % (0.0-10.0); %Neutrophils 89.5 % (42.0-75.0); Hemoglobin 10.5 g/dL (12.0-16.0); Mean Corpuscular HGB CONC 33.7 g/dL (32.0-36.0); Mean Corpuscular Hemoglobin 32.3 pg (27.0-31.0); Mean Corpuscular Volume 95.7 fL (78.0-98.0); Mean Platelet Volume 7.9 fL (7.4-10.4); Platelet Count 215 thou/uL (130-400); RBC Distribution Width 12.9 % (11.5-14.5); Red Blood Cell (RBC) Count 3.27 mill/uL (4.20-5.40); White Blood Cell (WBC) Count 8.3 thou/uL (4.8-10.8)
[2021-01-08 05:35] LABS: Anion Gap 11 mmol/L (10-20); BUN (Urea Nitrogen) 18 mg/dL (9.8-20.1); Calc. Creatinine Clearance 66 mL/min (70-130); Calcium 8.6 mg/dL (7.8-10.44); Carbon Dioxide 24 mmol/L (23-31); Chloride 103 mmol/L (98-107); Glucose 140 mg/dL (83-110); Potassium 3.7 mmol/L (3.5-5.1); Sodium 134 mmol/L (136-145)
[2021-01-08] MEDS: Levothyroxine Sodium 25 MCG TAB PO SCH (05:55)
[2021-01-08] MEDS: Apixaban 5 MG TAB PO SCH (08:33)
[2021-01-08] MEDS: Cholecalciferol 1,000 UNITS (25 MCG) TAB PO SCH (08:33)
[2021-01-08] MEDS: Multivit, Therapeutic 1 TAB PO SCH (08:33)
[2021-01-08] MEDS: Aspirin 81 mg Enteric Coated Tablet PO SCH (08:33)
[2021-01-08] MEDS: Losartan 25 MG TAB PO SCH (08:34)
[2021-01-08] MEDS: Metoprolol Tartrate 25 MG TAB PO SCH (08:34)
[2021-01-08] MEDS: Amlodipine 5 MG TAB PO SCH (08:35)
[2021-01-08] MEDS: Dexamethasone 4 MG TAB PO SCH (08:36)
[2021-01-08] MEDS: Zinc Sulfate 220 MG CAP PO SCH (08:36)
[2021-01-08] MEDS: Colchicine 0.6 MG TAB PO SCH (08:36)
[2021-01-08] MEDS: Escitalopram Oxalate 10 mg Tablet PO SCH (08:36)
[2021-01-08] MEDS: Folic Acid 1 MG TAB PO SCH (08:36)
[2021-01-08] MEDS: Loratadine 10 MG TAB PO SCH (08:36)
[2021-01-08] MEDS: Ascorbic Acid 500 mg Chewable Tablet PO SCH (08:36)
[2021-01-08 11:02] VITALS: BP 140/63; TEMP 98.2
[2021-01-13] MEDS ORDERED: Apixaban 5 MG TAB PO SCH (09:00)
== END 2021-01-08 13:08 | DRG 177 ==
LOC: ERS 18:56 → 2SW 21:00
PROVIDERS: ADMIT Internal Medicine; ATTEND Internal Medicine
DX: U07.1 COVID-19 (principal); J12.82 Pneumonia due to coronavirus disease 2019; J96.01 Acute respiratory failure with hypoxia; I26.93 Single subsegmental thrombotic pulmonary embolism without acute cor pulmonale; I10 Essential (primary) hypertension; E03.9 Hypothyroidism, unspecified; E87.6 Hypokalemia; E83.42 Hypomagnesemia; F03.90 Unspecified dementia, unspecified severity, without behavioral disturbance, psychotic disturbance, mood disturbance, and anxiety; Z79.82 Long term (current) use of aspirin
CPT/HCPCS: 36415; 51701; 71045; 71275; 80048; 80053; 81003; 81015; 82728; 83690; 83735; 83880; 84484; 85025; 85379; 85652; 86140; 87040; 87077; 87086; 87186; 93005; 96372; J1100; J1650; J3475; J3480; J8540; Q9967